=== PATIENT | female | born 2000 | race Caucasian/White ===

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

== ENCOUNTER 2019-02-07 09:18 | Emergency (ER) | payer SELFPAY ==
[~2019-02-07] VITALS: Ht 172.7 cm; Wt 79.8 kg
[2019-02-07 09:21] VITALS: Ht 172.7 cm; Wt 79.8 kg
[2019-02-07 10:17] VITALS: BP 118/84
== END 2019-02-07 10:17 | disposition home or self-care (01) ==
LOC: ED 09:18
DX: J02.9 Acute pharyngitis, unspecified (principal)

== ENCOUNTER 2019-04-26 18:32 | Emergency (ER) | payer MEDICAID ==
[~2019-04-26] VITALS: Ht 172.7 cm; Wt 79.8 kg
[2019-04-26 18:52] VITALS: Ht 172.7 cm; Wt 79.8 kg
[2019-04-26 19:37] LABS: BASOPHIL % 0.8 % (0-2); PLATELET COUNT 339 x10^3mcL (130-400)
[2019-04-26 19:38] LABS: RED CELL DISTRIBUTION WIDTH 17.1 % (11.5-14.5)
[2019-04-26 19:46] LABS: CALCIUM 8.5 mg/dL (8.5-10.1); CARBON DIOXIDE 27.8 mmol/L (21-32); CHLORIDE SERUM 104 mmol/L (98-107); CREATININE SERUM 0.8 mg/dL (0.6-1.0); GFR1 > 60 mL/min; GLUCOSE SERUM 93 mg/dL (74-106); POTASSIUM SERUM 3.6 mmol/L (3.5-5.1); SODIUM SERUM 142 mmol/L (136-145)
[2019-04-26 19:50] LABS: ALBUMIN 3.4 g/dL (3.4-5.0); ALKALINE PHOSPHATASE 63 U/L (46-116); ALT/SGPT 18 U/L (14-59); AST/SGOT 9 U/L (15-37); BILIRUBIN TOTAL 0.3 mg/dL (0.20-1.00)
[2019-04-26 20:56] LABS: microscopic required? YES; urine erythrocyte 2+ (NEGATIVE)
[2019-04-26 22:55] VITALS: BP 108/60
== END 2019-04-26 22:55 | disposition home or self-care (01) ==
LOC: ED 18:32
PROVIDERS: Emergency Medicine
DX: N94.6 Dysmenorrhea, unspecified (principal); D64.9 Anemia, unspecified; N76.0 Acute vaginitis
CPT/HCPCS: 87491; 87591; J1885; J7030; Q0092